=== PATIENT | female | born 2000 | race African-American/Black ===

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

== ENCOUNTER 2019-03-08 12:07 | Emergency (ER) | payer OTHER ==
[~2019-03-08] VITALS: Ht 160.8 cm; Wt 98.0 kg
[~2019-03-08 12:07] MED LIST changes: +PROVENTIL HFA IN; +ZITHROMAX250 MG PO
[2019-03-08] MEDS ORDERED: AMOXICILLIN875 MG PO (12:56)
[2019-03-08 13:00] VITALS: BP 134/67
== END 2019-03-08 13:00 | disposition home or self-care (01) | DRG 153 ==
LOC: ED 12:07
DX: J02.0 Streptococcal pharyngitis (principal); R50.9 Fever, unspecified

== ENCOUNTER 2020-04-13 11:22 | Emergency (ER) | payer MEDICAID ==
[~2020-04-13] VITALS: Ht 160.8 cm; Wt 103.0 kg
[~2020-04-13 11:22] MED LIST changes: +AMOXICILLIN875 MG PO
[2020-04-13] MEDS ORDERED: AMOXICILLIN500 MG PO (11:57)
[2020-04-13] MEDS ORDERED: ULTRAM50 M1 PO (11:57)
[2020-04-13 12:15] VITALS: BP 151/98
== END 2020-04-13 12:15 | disposition home or self-care (01) ==
LOC: ED 11:22
DX: K04.7 Periapical abscess without sinus (principal); S02.5XXA Fracture of tooth (traumatic), initial encounter for closed fracture; X58.XXXA Exposure to other specified factors, initial encounter

== ENCOUNTER 2020-06-04 23:07 | Emergency (ER) | payer OTHER ==
[~2020-06-04] VITALS: Ht 160.8 cm; Wt 100.5 kg
[~2020-06-04 23:07] MED LIST changes: +AMOXICILLIN500 MG PO; +ULTRAM50 M1 PO
[2020-06-05 00:25] VITALS: BP 136/80
== END 2020-06-05 00:27 | disposition home or self-care (01) ==
LOC: ED 23:07
DX: S61.011A Laceration without foreign body of right thumb without damage to nail, initial encounter (principal); W26.0XXA Contact with knife, initial encounter; Y93.89 Activity, other specified; Y92.009 Unspecified place in unspecified non-institutional (private) residence as the place of occurrence of the external cause

== ENCOUNTER 2020-06-16 15:00 | Emergency (ER) | payer OTHER ==
[~2020-06-16] VITALS: Ht 160.8 cm; Wt 100.5 kg
[2020-06-16 15:20] VITALS: BP 119/59
== END 2020-06-16 15:20 | disposition home or self-care (01) ==
LOC: ED 15:00
DX: S61.011D Laceration without foreign body of right thumb without damage to nail, subsequent encounter (principal); X58.XXXD Exposure to other specified factors, subsequent encounter

== ENCOUNTER 2021-01-26 | Emergency (ER) | payer OTHER | END 2021-01-26 19:25 | disposition home or self-care (01) | DX: M25.532 Pain in left wrist (principal) ==

== ENCOUNTER 2023-05-08 23:40 | Emergency (ER) | payer SELFPAY ==
[~2023-05-08] VITALS: Ht 162.6 cm; Wt 102.0 kg
[2023-05-08 23:46] VITALS: BP 129/67
[2023-05-09] VITALS (14 sets, daily range): BP systolic 77–148; BP diastolic 36–78
[2023-05-09 00:33] LABS: BASO% 0.4 % (0-3); EOS% 0.5 % (0-8); HEMATOCRIT 37.6 % (37.0-47.0); HEMOGLOBIN 12.4 g/dl (12.0-16.0); IMMATURE GRANULOCYTES 0.6 % (0.0-5.0); LYMPH% 27.2 % (15-41); MEAN CELL VOLUME 82.3 fL CALC (80.0-100.0); MEAN CORPUSCULAR HGB 27.1 pG CALC (26.0-32.0); MONO% 7.2 % (2-13); NEUT# 5.25 thou/uL (2.00-7.15); NEUT% 64.1 % (42-76); RED BLOOD COUNT 4.57 mill/uL (4.20-5.60); RED CELL DISTRI WIDTH 16.9 % (11.5-15.5)
[2023-05-09 00:34] LABS: ALBUMIN 4.7 g/dL (3.2-5.0); ALKALINE PHOSPHATASE 56 u/l (38-126); BUN 11 mg/dL (7-17); BUN/CREATININE RATIO 12 (12-20 (CALC)); CHLORIDE 104 mmol/l (95-108); GFR FOR AFR.AMER. > 60 ML/MIN (>=60 (CALC)); GFR OTHER RACES > 60 ML/MIN (>=60 (CALC)); POTASSIUM 3.8 mmol/l (3.5-5.1); SGOT/AST 44 u/l (14-36); SODIUM 138 mmol/l (137-146); TOTAL PROTEIN 8.7 g/dL (6.3-8.2)
[2023-05-09 00:35] LABS: ANION GAP 18 (6-22 (CALC)); BILIRUBIN, TOTAL 0.7 mg/dL (0.02-1.3); CARBON DIOXIDE 20 mmol/l (22-30)
[2023-05-09 04:29] LABS: URINE BILIRUBIN - DIPSTICK NEGATIVE (NEGATIVE); URINE BLOOD DIPSTICK NEGATIVE (NEGATIVE); URINE COLOR YELLOW; URINE GLUCOSE - DIPSTICK NEGATIVE (NEGATIVE); URINE KETONE NEGATIVE (NEGATIVE); URINE LEUK ESTERASE NEGATIVE (NEGATIVE); URINE PROTEIN - DIPSTICK NEGATIVE (NEG-TRACE); URINE SPECIFIC GRAVITY <=1.005; URINE UROBILINOGEN - DIPSTICK 0.2 E.U./dL (0.2)
[2023-05-09 04:36] LABS: URINE NITRITE - DIPSTICK NEGATIVE (Negative)
[2023-05-09] MEDS ORDERED: NAPROXEN375 MG PO (05:26)
== END 2023-05-09 05:41 | disposition home or self-care (01) | DRG 392 ==
LOC: ED 23:40
PROVIDERS: Family Medicine
DX: R10.2 Pelvic and perineal pain (principal)
CPT/HCPCS: Q9967

== ENCOUNTER 2023-12-07 14:25 | Emergency (ER) | payer SELFPAY ==
[~2023-12-07] VITALS: Ht 162.6 cm; Wt 106.0 kg
[~2023-12-07 14:25] MED LIST changes: +NAPROXEN375 MG PO
[2023-12-07 14:32] VITALS: BP 126/72
[2023-12-07 15:01] VITALS: BP 108/68
[2023-12-07 15:30] VITALS: BP 111/65
[2023-12-07] MEDS ORDERED: IBUPROFEN 800 MG/TAB PO ONE (15:35)
[2023-12-07] MEDS ORDERED: AMOXICILLIN TRIHYDRATE 500 MG/CAP PO ONE (15:35)
[2023-12-07 16:00] VITALS: BP 104/75
[2023-12-07] MEDS ORDERED: AMOXICILLIN & POT CLAVULANATE 875 MG/TAB PO ONE (16:05)
[2023-12-07] MEDS ORDERED: MOTRIN800 MG PO (16:14)
[2023-12-07] MEDS ORDERED: AMOX/K CLAV875 M1 PO (16:14)
[2023-12-07 16:28] VITALS: BP 104/75
== END 2023-12-07 16:31 | disposition home or self-care (01) | DRG 159 ==
LOC: ED 14:25
DX: K04.7 Periapical abscess without sinus (principal); F17.290 Nicotine dependence, other tobacco product, uncomplicated

== ENCOUNTER 2025-01-08 13:25 | Emergency (ER) | payer SELFPAY ==
[~2025-01-08] VITALS: Ht 162.6 cm; Wt 105.0 kg
[~2025-01-08 13:25] MED LIST changes: +AMOX/K CLAV875 M1 PO; +MOTRIN800 MG PO
[2025-01-08] MEDS ORDERED: HYDROCO/APAP1 TA9 PO (13:53)
[2025-01-08] MEDS ORDERED: PENICILLIN V P500 MG PO (13:53)
[2025-01-08 13:59] VITALS: BP 177/82
== END 2025-01-08 14:00 | disposition home or self-care (01) | DRG 159 ==
LOC: ED 13:25
DX: K04.7 Periapical abscess without sinus (principal); K03.81 Cracked tooth; Z72.0 Tobacco use